=== PATIENT | female | born 1995 | race Two or more races ===

== ENCOUNTER 2016-07-09 10:46 | Emergency (ER) | payer MEDICAID, OTHER ==
[~2016-07-09] VITALS: Ht 175.3 cm; Wt 103.4 kg
[2016-07-09 11:02] VITALS: BP 138/89
[2016-07-09] MEDS ORDERED: ACETAMINOPHEN 500 MG TABLET PO ONE (11:30)
[2016-07-09] MEDS ORDERED: ACETAMINOPHEN 500 MG TABLET ONE (11:31)
== END 2016-07-09 11:37 | disposition home or self-care (01) ==
LOC: ED 11:31
DX: J03.80 Acute tonsillitis due to other specified organisms (principal); B95.5 Unspecified streptococcus as the cause of diseases classified elsewhere; R50.81 Fever presenting with conditions classified elsewhere
CPT/HCPCS: 99283

== ENCOUNTER 2017-01-13 20:07 | Emergency (ER) | payer OTHER ==
[~2017-01-13] VITALS: Ht 172.7 cm; Wt 104.5 kg
[2017-01-13] MEDS ORDERED: SODIUM CHLORIDE FLUSH 10ML SYR IVF ONE (21:00)
[2017-01-13] MEDS ORDERED: ONDANSETRON 2MG/ML, 2ML IVPush ONE (21:00)
[2017-01-13] MEDS ORDERED: ONDANSETRON 2MG/ML, 2ML ONE (21:00)
[2017-01-13] MEDS ORDERED: KETOROLAC 30 MG/1 ML ONE (21:00)
[2017-01-13] MEDS ORDERED: KETOROLAC 30 MG/1 ML IVPush ONE (21:00)
[2017-01-13 21:08] LABS: HEMATOCRIT 45.3 % (34.6-47.8); HEMOGLOBIN 15.6 g/dL (11.7-16.4); WHITE BLOOD COUNT 10.6 x10^3/uL (3.4-10)
[2017-01-13 21:12] LABS: PATH.CAST-FLAG NOT PRESENT; SPERM-FLAG NOT PRESENT; SRC-FLAG NOT PRESENT; XTAL-FLAG NOT PRESENT; YLC-FLAG NOT PRESENT
[2017-01-13 21:15] LABS: ASPARTATE AMINO TRANSFERASE 18 U/L (15-37); BLOOD UREA NITROGEN 14 mg/dL (7-18)
[2017-01-13 21:30] VITALS: BP 125/85
== END 2017-01-13 22:14 | disposition home or self-care (01) ==
LOC: ED 22:00
DX: R10.31 Right lower quadrant pain (principal); R11.2 Nausea with vomiting, unspecified
CPT/HCPCS: 36415; 76830; 80053; 81001; 83690; 84702; 84703; 85025; 93005; 96374; 96375; 99285; J1885; J2405